=== PATIENT | female | born 1960 | race Caucasian/White ===

== ENCOUNTER → 2020-06-09 08:31 | Outpatient (CLI) | payer OTHER, SELFPAY ==
--- NOTE | ~2020-06-09 | CT_ITS ---
EXAMINATION: CT diagnostic chest w con DATE: 06/09/2020 09:09 INDICATION: Vocal cord paralysis TECHNIQUE: Transaxial computed tomographic images of the chest were obtained after the administration of 75 cc of Omnipaque 350 intravenous contrast. The dose-length product (DLP) was 679.19 mGy-cm. Ite rative reconstruction was used. COMPARISON: 11/20/2018 FINDINGS: There is a 4 mm nodule of the right upper lobe on image 33. A calcified nodule of the left lower lobe is consistent with old granulomatous disease. A stable 4 mm nodule of the left lower lobe also likely represents old granulomatous disease. The lungs are free of acute opacities. There is no pleural effusion or pneumothorax. No pathologically enlarged thoracic lymph nodes are identified. The heart size is normal. Punctate calcifications in an otherwise normal spleen likely represent healed granulomatous disease. There is moderate thoracic spondylosis. IMPRESSION: 1. No CT correlate for the patient's symptoms. 2. 4 mm nodule of the right upper lobe, likely old granulomatous disease. If the patient has no risk factors for malignancy, no further follow up is required. If there are risk factors for malignancy ( i.e., history of smoking, asbestos or radiation exposure), consider followup CT in 12 months. Reviewed, dictated and finalized at location A. IMPRESSION: 1. No CT correlate for the patient's symptoms. 2. 4 mm nodule of the right upper lobe, likely old granulomatous disease. If th e patient has no risk factors for malignancy, no further follow up is required. If there are risk factors for malignancy (i.e., history of smoking, asbestos or radiation exposure), consider followup CT in 12 months.
[2020-06-09 08:49] LABS: Estimated Glomerular Filt Rate > 60
== END ==
PROVIDERS: Visit Provider Otolaryngology
DX: J38.00 Paralysis of vocal cords and larynx, unspecified (principal); R91.1 Solitary pulmonary nodule
CPT/HCPCS: 71260; Q9967

== ENCOUNTER 2021-11-05 16:31 | Emergency (ER) | payer OTHER, SELFPAY ==
[2021-11-05 16:40] VITALS: BP 148/81; PULSE 98; RESP 18; TEMP 37.1; O2SAT 100
--- NOTE | 2021-11-05 17:33 | ED.FEMALEGU ---
HPI - Female Genitourinary General Chief complaint: Urogenital-Female Stated complaint: possible uti Time Seen by Provider: 11/05/21 17:33 Source: patient, RN notes reviewed and old records reviewed Mode of arrival: ambulatory Limitations: no limitations History of Present Illness HPI Narrative: 61-year-old female presents to the [facility] with several days of burning, urgency and frequency of urination. Patient states it feels like a typical UTI with pressure suprapubic. Denies any fevers. No nausea or vomiting. No abdominal pain. No CVA tenderness. Related Data Home Medications Medication Instructions Recorded Confirmed amlodipine 10 mg tablet 10 mg DIRECTED 11/05/21 11/05/21 estradiol 10 mcg vaginal tablet 10 mcg vaginal DIRECTED 11/05/21 11/05/21 metformin 500 mg tablet,extended 500 mg PO DIRECTED 11/05/21 11/05/21 release 24 hr nystatin 100,000 unit/gram topical 100,000 unit topical DIRECTED 11/05/21 11/05/21 ointment Allergies Allergy/AdvReac Type Severity Reaction Status Date / Time No Known Allergies Allergy Unknown Verified 11/20/18 01:02 No Known Allergies Allergy Uncoded 11/20/18 01:02 Review of Systems Review of Systems: All systems reviewed & are unremarkable except as noted in HPI and below Constitutional: Constitutional: Reports no additional constitutional complaints, Denies chills and Denies fatigue Eyes: Eyes: Reports no additional eye complaints ENT: Reports system reviewed and no additional complaints, except as documented Cardiovascular: Cardiovascular: Reports no additional cardiovascular complaints Respiratory: Respiratory: Reports no additional respiratory complaints Gastrointestinal: Gastrointestinal: Reports no additional gastrointestinal complaints, Denies abdominal pain, Denies diarrhea, Denies nausea and Denies vomiting Genitourinary: Genitourinary: Reports as per HPI, Reports hematuria, Reports nocturia, Reports dysuria, Denies flank pain and Denies vaginal discharge Musculoskeletal: Musculoskeletal: Reports no additional musculoskeletal complaints and Denies back pain Integumentary/Breasts: Skin/Breast: Reports system reviewed and no additional complaints, except as docu Neurologic: Reports system reviewed and no additional complaints, except as documented Psychiatric: Psychiatric: Reports no additional psychiatric complaints Endocrine: Endocrine: Denies fatigue Allergic/Immunologic: Allergic/Immunologic: Reports no additional allergic/immunologic complaints PMFSH Past Medical History Medical History (Updated 09/30/22 @ 17:37 by Asiya Portillo APRN) Diabetes Diverticulitis Hernia HTN (hypertension) IBS (irritable bowel syndrome) Surgical History Surgical History History of section History of cholecystectomy History of hernia repair History of hysterectomy Social History Social History Smoking status: Never smoker Alcohol intake: current Alcohol use details: Occasional Comments At the time of my signature, I reviewed and agree with the nursing past medical, surgical, social, and family history. There is no relevant family history pertinent to the patient complaint. Exam Const: General: healthy appearing, no acute distress and alert Nutritional Appearance: well nourished Orientation/consciousness: patient oriented x3 Limitations: no limitations HENMT: Head: normal to inspection Eyes: Conjunctivae: conjunctivae normal Pupils: Equal, round and reactive pupils present Neck: Neck: normal visual inspection, no lymphadenopathy and no meningeal signs Chest: Chest palpation & inspection: normal inspection of the chest and abnormal inspection of the chest Resp: Effort & Inspection: normal respiratory effort Auscultation: clear to auscultation bilaterally Cardio: Rate: regular rate Rhythm: regular rhythm GI
== END 2021-11-05 17:47 | disposition home or self-care (01) ==
PROVIDERS: Emergency Provider Nurse Practitioner; PCP Family Medicine
DX: R30.0 Dysuria (principal); I10 Essential (primary) hypertension
CPT/HCPCS: 81003; 87086; 87088; 99213; G0463

== ENCOUNTER 2021-12-08 16:32 | Emergency (ER) | payer OTHER, SELFPAY ==
[2021-12-08] VITALS (8 sets, daily range): BP systolic 175–188; BP diastolic 77–96; PULSE 80–102; RESP 16–20; TEMP 36.1; O2SAT 96–100
--- NOTE | ~2021-12-08 | CT_ITS ---
EXAMINATION: CT abdomen pelvis w con DATE: 12/08/2021 19:42 INDICATION: LLQ pain TECHNIQUE: Computed tomography (CT) of the abdomen and pelvis was performed with 100 mL Omnipaque-350 intravenous contrast. Automated exposure control and iterative reconstruction technique were employe d. The dose-length product was 1459.73 mGy-cm. COMPARISON: 12/16/2018. FINDINGS: Lower thorax: Mild coronary artery calcification. Left lower lobe granuloma. Liver: Normal. Biliary/Gallbladder: Gallbladder is absent. No bile duct dilation. Pancreas: No mass or duct dilation. Spleen: Granulomatous calcification Adrenals:No mass. Kidneys: Left renal ectopia. No suspicious mass, hydronephrosis, or obstructing calcification GI tract: No small or large bowel dilation. Normal appendix. Diverticulosis without diverticulitis. Mesentery/Peritoneum: No ascites, mass, or free air. Retroperitoneum: No mass. Atherosclerotic abdominal aortic and/or arterial calcifications. Pelvis: Pelvic organs are within normal limits. Soft Tissues: Soft tissues and body wall unremarkable. Bones: No acute osseous finding. IMPRESSION: No acute abdominopelvic process detected Reviewed, dictated and finalized at location K.
[2021-12-08 16:58] LABS: Basophils Absolute Auto 0.1 K/mm3 (0.0-0.1); Basophils Percent Auto 0.9 % (0.2-1.2); Eosinophils Absolute Auto 0.3 K/mm3 (0-0.3); Eosinophils Percent Auto 4.2 % (0-4.4); Hematocrit 38.4 % (37.0-47.0); Hemoglobin 12.7 g/dL (12.0-15.0); Immature Granulocyte Absolute 0.02 K/mm3 (0.00-0.031); Immature Granulocyte Percent A 0.3 % (0-0.5); Lymphocytes Absolute Auto 1.98 K/mm3 (0.9-3.2); Lymphocytes Percent Auto 25.3 % (18.3-44.2); Mean Corpuscular HGB Conc 33.1 g/dl (32-36); Mean Corpuscular Volume 84.8 fl (80-100); Monocytes Absolute Auto 0.6 K/mm3 (0.1-0.6); Monocytes Percent Auto 7.3 % (2.6-8.5); Neutrophils Absolute Auto 4.9 K/mm3 (1.3-6.7); Platelet Count Result 246 k/mm3 (150-375); Red Blood Count 4.53 M/mm3 (4.2-5.4); Red Cell Distribution Width 13.2 % (11.5-14.5); White Blood Count 7.8 K/mm3 (4.5-10.0)
[2021-12-08 17:09] LABS: Alanine Aminotransferase 30 U/L (6-35); Albumin Level 4.3 g/dL (3.5-5.1); Alkaline Phosphatase 114 U/L (38-126); Anion Gap 10 mmol/L (8-16); Aspartate Amino Transferase 32 U/L (14-36); Bilirubin,Total 0.6 mg/dL (0.2-1.3); Blood Urea Nitrogen 13 mg/dL (7-17); Calcium 9.1 mg/dL (8.4-10.2); Carbon Dioxide 28 mmol/L (22-30); Chloride 100 mmol/L (98-107); Estimated CRCL calculation 103 ml/min; Estimated Glomerular Filt Rate > 60; Glucose 149 mg/dL (65-110); Lipase 69 U/L (23-300); Sodium 138 mmol/L (137-145)
--- NOTE | 2021-12-08 19:22 | ED.ABDPAIN ---
HPI - Abdominal Pain General Chief Complaint: Abdominal Pain Stated Complaint: LLQ pain Time Seen by Provider: 12/08/21 18:53 History of Present Illness HPI narrative: 61-year-old female with history of diverticulitis, previous section, hernia repair and hysterectomy presenting to the emergency department for evaluation of left lower quadrant pain this been going on for the past 2 days. Patient states she began having the left lower quadrant pain yesterday. Patient states the pain is worsened with eating. Patient does report associated nausea vomiting and diarrhea. Patient's last episode of diverticulitis was October 2018. Patient had had follow-up with a GI physician at [facility] and they were discussing possible surgery but after COVID patient has been lost to follow-up with GI. Patient had a hernia repair in 2003. Related Data Home Medications Medication Instructions Recorded Confirmed amlodipine 10 mg tablet 10 mg DIRECTED 11/05/21 11/05/21 estradiol 10 mcg vaginal tablet 10 mcg vaginal DIRECTED 11/05/21 11/05/21 metformin 500 mg tablet,extended 500 mg PO DIRECTED 11/05/21 11/05/21 release 24 hr nystatin 100,000 unit/gram topical 100,000 unit topical DIRECTED 11/05/21 11/05/21 ointment Allergies Allergy/AdvReac Type Severity Reaction Status Date / Time No Known Allergies Allergy Unknown Verified 12/08/21 16:48 Review of Systems Review of Systems: CONSTITUTIONAL: Denies fever, chills, or sweats. EYES: Denies visual changes, redness, or discharge. ENT: Denies rhinorrhea, congestion, sore throat, or otalgia. CARDIOVASCULAR: Denies chest pain, palpitations, or edema. RESPIRATORY: Denies cough or dyspnea. GASTROINTESTINAL: Left lower quadrant pain GENITOURINARY: Denies dysuria or hematuria. SKIN: Denies rash or itching. MUSCULOSKELETAL: Denies back pain, joint pain, or myalgia. [facility] Past Medical History Medical History (Updated 12/08/21 @ 20:41 by Douglas Vargas MD) Diabetes Diverticulitis Hernia HTN (hypertension) IBS (irritable bowel syndrome) Surgical History Surgical History History of section History of cholecystectomy History of hernia repair History of hysterectomy Social History Social History (Reviewed 11/05/21 @ 20:10 by ERNESTINE Borges Smoking status: Never smoker Alcohol intake: current Alcohol use details: Occasional Exam Narrative: APPEARANCE: Well appearing, no pain, no distress, well-nourished. HEAD: normocephalic, atraumatic. EYES: PERRLA/EOMI, conjunctivae clear. NOSE: Normal no drainage NECK: Supple. No adenopathy, no masses. RESPIRATORY: Airway patent, respirations nonlabored. Clear to auscultation bilaterally, no rales, rhonchi, wheezing. CARDIOVASCULAR: Regular rate and rhythm without murmurs rubs or gallops. ABDOMINAL: Soft, nondistended, normal bowel sounds. Left lower quadrant tenderness to palpation with some minor right lower quadrant tenderness MUSCULOSKELETAL: Moves all extremities. Strength/ROM intact, No edema, No calf tenderness. NEURO: Alert. Cranial nerves II through XII intact. Grossly intact SKIN: Warm, dry. Normal Color Course Course Emergency Course: Patient suspected that her symptoms were caused by diverticulitis due to the similarity to her previous episodes of diverticulitis. CT scan showed no evidence of diverticulitis. Patient will be started on Augmentin for diverticulitis that may have been so early it was not visible on the CT scan. Patient was provided Zofran for nausea control and will start Augmentin. Patient was educated on reasons to return to the emergency department. All question concerns were addressed. Patient was well-appearing at time of discharge. Vital Signs Vital signs: Vital Signs Temperature 97 F L 12/08/21 16:45 Pulse Rate 100 12/08/21 16:45 Respiratory Rate 20 12/08/21 16:45 Blood Pressure 175/83 H
[2021-12-08 20:26] LABS: Appearance Urine Clear (Clear); Bilirubin Urine Negative (Negative); Blood Urine Negative (Negative); Color Urine Yellow (Yellow); Glucose Urine UA Negative (Negative); Ketones Urine Negative (Negative); Leukocyte Esterase Ur Negative LEU/UL (Negative); Nitrate Urine Negative (Negative); Protein Urine Negative (Negative); Specific Grav Ur 1.015 (1.001-1.035); Urobilinogen Urine 0.2 mg/dL (<2.0)
[2021-12-08 20:34] LABS: Mucus Urine Rare /lpf; WBC Urine 0-3 /hpf
[2021-12-08 20:35] LABS: Add Urine Microscopic? NO
[2021-12-08] MEDS: AMOXICILLIN/CLAVULANATE K 875-125 MG TAB 1 TABLET PO (20:49)
[2021-12-08] MEDS: ONDANSETRON INJ 4 MG/2 ML VIAL IV PUSH (20:49)
== END 2021-12-08 21:00 | disposition home or self-care (01) ==
PROVIDERS: Emergency Medicine; Emergency Provider Emergency Medicine; PCP Family Medicine
DX: R10.32 Left lower quadrant pain (principal); E11.9 Type 2 diabetes mellitus without complications; I10 Essential (primary) hypertension; K58.9 Irritable bowel syndrome, unspecified; Z90.710 Acquired absence of both cervix and uterus
CPT/HCPCS: 36415; 74177; 80053; 81003; 83690; 85025; 96374; 99284; A9270; J2405; Q9967

== ENCOUNTER 2022-05-27 07:36 | Emergency (ER) | payer BC, SELFPAY ==
[2022-05-27] VITALS (19 sets, daily range): BP systolic 136–182; BP diastolic 64–88; PULSE 81–99; RESP 11–19; TEMP 36.4; O2SAT 94–100
--- NOTE | ~2022-05-27 | XR_ITS ---
EXAMINATION: XR chest 2V 05/27/2022 08:18 INDICATION: Chest pain, nausea and hypertension PROCEDURE: PA and lateral views of the chest COMPARISON: 06/10/2018 FINDINGS: The lungs are clear. The cardiomediastinal silhouette is within normal limits. There are no pleural effusions. There is no pneumothorax suspected. IMPRESSION: 1: NO ACUTE CARDIOPULMONARY DISEASE. Reviewed, dictated and finalized at location A.
--- NOTE | 2022-05-27 07:41 | ECG_ITS ---
Measurements Intervals [place] Rate: 96 P: -11 ND: 123 QRS: -21 QRSD: 93 T: -12 QT: 346 QTc: 438 Interpretive Statements SINUS RHYTHM BORDERLINE LEFT AXIS DEVIATION [QRS AXIS < -20] MODERATE VOLTAGE CRITERIA FOR LVH, CONSIDER NORMAL VARIANT [MEETS CRITERIA IN ONE OF: R(aVL), S(V1), R(V5), R(V5/V6)+S(V1)] POOR R-WAVE PROGRESSION ABNORMAL ECG COMPARED TO ECG 11/19/2018 22:47:19 NO SIGNIFICANT CHANGES Electronically Signed On 05-27-2022 15:28:16 CDT by Lne Huber M.D.
[2022-05-27 08:21] LABS: Basophils Absolute Auto 0.1 K/mm3 (0.0-0.1); Basophils Percent Auto 0.9 % (0.2-1.2); Eosinophils Absolute Auto 0.4 K/mm3 (0-0.3); Hematocrit 38.3 % (37.0-47.0); Hemoglobin 12.9 g/dL (12.0-15.0); Immature Granulocyte Absolute 0.02 K/mm3 (0.00-0.031); Immature Granulocyte Percent A 0.3 % (0-0.5); Lymphocytes Absolute Auto 1.49 K/mm3 (0.9-3.2); Lymphocytes Percent Auto 21.3 % (18.3-44.2); Mean Corpuscular HGB Conc 33.7 g/dl (32-36); Mean Corpuscular Hemoglobin 28.5 pg (26-34); Mean Corpuscular Volume 84.5 fl (80-100); Mean Platelet Volume 10.4 fl (7.4-10.4); Monocytes Absolute Auto 0.4 K/mm3 (0.1-0.6); Monocytes Percent Auto 6.2 % (2.6-8.5); Neutrophils Absolute Auto 4.6 K/mm3 (1.3-6.7); Neutrophils Percent Auto 66.3 % (45.5-73.1); Platelet Count Result 228 k/mm3 (150-375); Red Blood Count 4.53 M/mm3 (4.2-5.4); Red Cell Distribution Width 13.2 % (11.5-14.5)
[2022-05-27 08:26] LABS: Alanine Aminotransferase 38 U/L (6-35); Albumin Level 4.4 g/dL (3.5-5.1); Alkaline Phosphatase 123 U/L (38-126); Anion Gap 7 mmol/L (8-16); Aspartate Amino Transferase 36 U/L (14-36); Bilirubin,Total 0.6 mg/dL (0.2-1.3); Blood Urea Nitrogen 14 mg/dL (7-17); Carbon Dioxide 29 mmol/L (22-30); Chloride 102 mmol/L (98-107); Estimated CRCL calculation 120 ml/min; Estimated Glomerular Filt Rate > 60; Glucose 217 mg/dL (65-110); Lipase 111 U/L (23-300); Potassium 4.4 mmol/L (3.4-5.0); Sodium 138 mmol/L (137-145)
[2022-05-27 08:38] LABS: Troponin I < 0.012 ng/mL (0.000-0.034)
--- NOTE | 2022-05-27 08:42 | ED.CHESTPAIN ---
HPI - Chest Pain General Chief Complaint: Chest Pain Stated Complaint: chest pain Time Seen by Provider: 05/27/22 07:53 History of Present Illness HPI narrative: Patient with history of high blood pressure presenting here with chest pain that started this morning, with some radiation to the neck, she also feels her blood pressure has been out of control for the last 2 to 3 days, she is currently on amlodipine and recently started a new medication amitriptyline for her bladder. Related Data Home Medications Medication Instructions Recorded Confirmed amlodipine 10 mg tablet 10 mg DIRECTED 11/05/21 11/05/21 estradiol 10 mcg vaginal tablet 10 mcg vaginal DIRECTED 11/05/21 11/05/21 metformin 500 mg tablet,extended 500 mg PO DIRECTED 11/05/21 11/05/21 release 24 hr nystatin 100,000 unit/gram topical 100,000 unit topical DIRECTED 11/05/21 11/05/21 ointment Allergies Allergy/AdvReac Type Severity Reaction Status Date / Time No Known Allergies Allergy Unknown Verified 12/08/21 16:48 Review of Systems Review of Systems: CONST: No fever. HEENT: No sore throat C/V: Chest pain RESP: No cough GI: Mild nausea : Chronic dysuria M/S: No joint pain. SKIN: No rash. NEURO: [No headache or focal numbness or weakness] PSYCH: [No depression] [facility] Past Medical History Medical History (Updated 05/27/22 @ 11:56 by Myla Foreman MD) Diabetes Diverticulitis Hernia HTN (hypertension) IBS (irritable bowel syndrome) Surgical History Surgical History History of section History of cholecystectomy History of hernia repair History of hysterectomy Social History Social History Smoking status: Never smoker Alcohol intake: current Alcohol use details: Occasional Exam Narrative: EXAMINATION OF ORGAN SYSTEMS/BODY AREAS: Constitutional: Vital signs per nursing GENERAL:[No acute distress, non-toxic appearing.] HEAD: Normal with no signs of head trauma. EYES: EOMI, conjunctiva normal ENT: Hearing grossly intact LUNGS: Nonlabored breathing. HEART: [Regular rate and rhythm]; normal and equal bilateral radial and DP pulses ABD: [Soft], [nontender to palpation] EXT: Normal range of motion SKIN: [No rashes or lesions.] NEURO: [Alert and oriented x 3. No gross focal sensory or strength deficits.] PSYCH: Normal affect Course Vital Signs Vital signs: Vital Signs Temperature 97.6 F 05/27/22 07:48 Pulse Rate 96 05/27/22 07:48 Respiratory Rate 18 05/27/22 07:48 Blood Pressure 136/66 05/27/22 07:48 Pulse Oximetry 100 05/27/22 07:48 Oxygen Delivery Room Air 05/27/22 07:48 Temperature 97.6 F 05/27/22 07:48 Pulse Rate 88 05/27/22 11:45 Respiratory Rate 16 05/27/22 11:45 Blood Pressure 154/64 H 05/27/22 11:45 Pulse Oximetry 95 05/27/22 11:45 Oxygen Delivery Room Air 05/27/22 07:48 MDM - Chest Pain MDM Narrative Medical decision making narrative: ED COURSE AND MEDICAL DECISION MAKINyoM presenting with chest pain. EKG done in triage negative for acute ischemic changes. Cardiac workup is initiated. EKG - 12-Lead: Performed at 0745. Interpreted by me. [Sinus rhythm]. Rate 96. [Normal] axis. LA-interval 123. QRS duration 93. QTc [normal]. [No ST segment elevation or depression]. [T-wave normal]. Impression: No EKG evidence of acute ischemia or dysrhythmia. HEART score is 3 with no acute ischemic changes on EKG and negative troponin making ACS unlikely. Wells low risk making PE unlikely. Presentation not consistent with dissection or aneurysm without radiation of pain or pulse deficits. CXR negative for mediastinal widening. No abdominal pain or signs of sepsis that would be concerning for esophageal perforation or mediastinitis. No cardiomegaly or JVD to suggest pericardial effusion/tamponade. On repeat evaluation just prior to discharge, the patient
[2022-05-27 08:47] LABS: Prothrombin Time 12.9 Seconds (11.1-14.7)
[2022-05-27 08:48] LABS: Partial Thromboplastin Time 27.7 SECONDS (22.3-36.8)
[2022-05-27 11:31] LABS: Troponin I < 0.012 ng/mL (0.000-0.034)
== END 2022-05-27 12:07 | disposition home or self-care (01) ==
PROVIDERS: Emergency Provider Emergency Medicine; PCP Family Medicine
DX: R07.9 Chest pain, unspecified (principal); I10 Essential (primary) hypertension; E11.9 Type 2 diabetes mellitus without complications
CPT/HCPCS: 36415; 71046; 80053; 83690; 84484; 85025; 85610; 85730; 93005; 99284

== ENCOUNTER 2023-01-21 11:12 | Emergency (ER) | payer BC, SELFPAY ==
[2023-01-21 11:25] VITALS: BP 141/75; PULSE 91; RESP 16; TEMP 36.7; O2SAT 98
--- NOTE | 2023-01-21 12:09 | ED.URI ---
HPI - URI/Sore Throat General Chief Complaint: Upper Respiratory Infection Stated Complaint: head/chest congestion, cough Time Seen by Provider: 01/21/23 12:12 Source: patient and RN notes reviewed Mode of arrival: ambulatory Limitations: no limitations History of Present Illness HPI Narrative: 62-year-old female presents concern for cough, nasal congestion and drainage. She reports symptoms started several weeks ago, she took a Z-Raza from her doctor and felt mostly better until about 3 days ago when she started feeling worse again. She reports she has been using an albuterol inhaler, she last took it last night. MD elicited complaint: cough and rhinorrhea Related Data Home Medications Medication Instructions Recorded Confirmed amlodipine 10 mg tablet 10 mg DIRECTED 11/05/21 01/21/23 estradiol 10 mcg vaginal tablet 10 mcg vaginal DIRECTED 11/05/21 01/21/23 albuterol sulfate 90 mcg/actuation See Rx Instructions .Route .COMPLEX 01/21/23 01/21/23 aerosol inhaler azithromycin 250 mg tablet See Rx Instructions .Route .COMPLEX 01/21/23 01/21/23 clobetasol 0.05 % scalp solution See Rx Instructions .Route .COMPLEX 01/21/23 01/21/23 glyburide 5 mg tablet 5 mg PO DAILY 01/21/23 01/21/23 pantoprazole 40 mg tablet,delayed 40 mg PO DAILY 01/21/23 01/21/23 release terbinafine HCl 250 mg tablet 250 mg PO DAILY 01/21/23 01/21/23 Allergies Allergy/AdvReac Type Severity Reaction Status Date / Time No Known Allergies Allergy Unknown Verified 01/21/23 11:43 Review of Systems Review of Systems: CONSTITUTIONAL: Reports malaise. Denies chills, sweats, or fever. EYES: Denies visual changes, redness, or discharge. ENT: Reports rhinorrhea, congestion, sinus pain. Denies otalgia and sore throat. CARDIOVASCULAR: Denies chest pain, palpitations, or edema. RESPIRATORY: Reports cough and chest congestion. Denies dyspnea. GASTROINTESTINAL: Denies abdominal pain, nausea, vomiting, diarrhea SKIN: Denies rash or itching. MUSCULOSKELETAL: Denies myalgia. NEUROLOGIC: Reports headache. All systems reviewed & are unremarkable except as noted in HPI and below PMFSH Past Medical History Medical History (Updated 01/21/23 @ 12:20 by Asiya Mustafa NP) Diabetes Diverticulitis Hernia HTN (hypertension) IBS (irritable bowel syndrome) Surgical History Surgical History History of section History of cholecystectomy History of hernia repair History of hysterectomy Social History Social History Smoking status: Never smoker Alcohol intake: current Alcohol use details: Occasional Comments At time of signature, agree with nursing past medical, surgical, social and family history. There is no relevant family history pertinent to the presenting complaint Exam Narrative: GENERAL: Well-appearing, well-nourished, and in no acute distress. HEAD: Normocephalic EYES: PERRLA, conjunctivae clear ENT: Nares clear, turbinates edematous and erythematous. Mucous membranes moist. TM pearly cam with sharp light reflex bilaterally; no tragal tenderness. Oropharynx not erythematous without lesions. Tonsils not enlarged and without exudate, no drooling, no hoarseness, no trismus, uvula midline. NECK: Supple. No lymphadenopathy CHEST: Clear to auscultation, breath sounds equal. No wheezing, rhonchi, rales, or stridor. No respiratory distress, speaks in full sentences. Cough noted HEART: Regular rate and rhythm. No murmur heard. SKIN: Warm, dry, no rash. NEURO: Alert and oriented x3. PSYCH: Normal mood and affect Course Course Emergency Course: Patient is aware of diagnosis, understands and agrees to treatment plan. Anticipatory guidance given. Patient agrees to follow-up as directed and is aware of reasons to seek care at the emergency department. Portions of this record may have been created with voice recognition software Lev
== END 2023-01-21 12:29 | disposition home or self-care (01) ==
PROVIDERS: Emergency Provider Nurse Practitioner; PCP Family Medicine
DX: J40 Bronchitis, not specified as acute or chronic (principal); E11.9 Type 2 diabetes mellitus without complications; I10 Essential (primary) hypertension
CPT/HCPCS: 99213; G0463

== ENCOUNTER 2023-07-29 06:31 | Emergency (ER) | payer BC, SELFPAY ==
--- NOTE | ~2023-07-29 | CT_ITS ---
EXAMINATION: CT abdomen pelvis wo con DATE: 07/29/2023 08:26 INDICATION: Dysuria, frequent urination, hematuria. Lower back pain. Nausea. TECHNIQUE: Computed tomography (CT) of the abdomen and pelvis was performed without intravenous contr ast. Automated exposure control and iterative reconstruction technique were employed. Exam dose: 136 1.28 mGy-cm total exam DLP. COMPARISON: 12/08/2021 CT abdomen pelvis FINDINGS: Calcified left lower lobe pulmonary granuloma. No pericardial or pleural effusion. Status post cholecystectomy. No hepatic space-occupying mass lesion. No bile duct or pancreatic duct dilatation. The pancreatic mass lesion or calcification. Splenic size is normal. There are numerous calcified splenic granulomas. Normal morphology of the adrenal glands. No renal mass lesion The urinary bladder is unremarkable. Status post hysterectomy. Normal caliber of the abdominal aorta. No intraperitoneal or retroperitoneal or pelvic mass lesion or adenopathy or ascites. Diverticulosis of left and right colon; no CT evidence of diverticulitis. No bowel obstruction or int raperitoneal free air. No suspicious osteolytic or osteoblastic lesions. Degenerative changes of the thoracic and lumbar spi ne. IMPRESSION: No urinary tract calculus or hydroureteronephrosis Status post hysterectomy Status post cholecystectomy Diverticulosis of the colon; no CT evidence of diverticulitis Reviewed, dictated and finalized at [facility] Reviewed, dictated and finalized at [facility].
[2023-07-29 06:38] VITALS: BP 160/90; PULSE 89; RESP 14; TEMP 36.6; O2SAT 99
[2023-07-29 07:02] LABS: Basophils Absolute Auto 0.1 K/mm3 (0.0-0.1); Basophils Percent Auto 0.8 % (0.2-1.2); Eosinophils Absolute Auto 0.4 K/mm3 (0-0.3); Hematocrit 38.6 % (37.0-47.0); Hemoglobin 12.4 g/dL (12.0-15.0); Immature Granulocyte Absolute 0.03 K/mm3 (0.00-0.031); Immature Granulocyte Percent A 0.4 % (0-0.5); Lymphocytes Percent Auto 24.5 % (18.3-44.2); Mean Corpuscular HGB Conc 32.1 g/dl (32-36); Mean Corpuscular Hemoglobin 26.9 pg (26-34); Mean Corpuscular Volume 83.7 fl (80-100); Mean Platelet Volume 10.9 fl (7.4-10.4); Monocytes Absolute Auto 0.5 K/mm3 (0.1-0.6); Monocytes Percent Auto 6.5 % (2.6-8.5); Neutrophils Absolute Auto 4.6 K/mm3 (1.3-6.7); Neutrophils Percent Auto 62.8 % (45.5-73.1); Platelet Count Result 237 k/mm3 (150-375); Red Blood Count 4.61 M/mm3 (4.2-5.4); Red Cell Distribution Width 13.4 % (11.5-14.5); White Blood Count 7.4 K/mm3 (4.5-10.0)
[2023-07-29 07:11] LABS: Alanine Aminotransferase 27 U/L (6-35); Albumin Level 4.6 g/dL (3.5-5.1); Alkaline Phosphatase 110 U/L (38-126); Anion Gap 8 mmol/L (4-12); Aspartate Amino Transferase 30 U/L (14-36); Bilirubin,Total 0.5 mg/dL (0.2-1.3); Blood Urea Nitrogen 17 mg/dL (7-17); Carbon Dioxide 25 mmol/L (22-30); Chloride 104 mmol/L (98-107); Estimated CRCL calculation 115 ml/min; Estimated Glomerular Filt Rate > 60; Glucose 202 mg/dL (65-110); Potassium 4.3 mmol/L (3.4-5.0); Sodium 137 mmol/L (137-145)
--- NOTE | 2023-07-29 07:24 | ED.GENADULT ---
HPI - General Adult General Chief complaint: Urogenital-Female Stated complaint: Left flank pain, urinary issues Time Seen by Provider: 07/29/23 06:56 History of Present Illness HPI narrative: 63-year-old female presenting to the emergency department for evaluation for urinary symptoms. Patient states the last few days she has had worsening urinary symptoms. Patient describes lower abdominal pressure, burning with urination and increased urination. Patient is type 2 diabetic but states her blood sugars have been well controlled. Related Data Home Medications Medication Instructions Recorded Confirmed amlodipine 10 mg tablet 10 mg DIRECTED 11/05/21 01/21/23 estradiol 10 mcg vaginal tablet 10 mcg vaginal DIRECTED 11/05/21 01/21/23 albuterol sulfate 90 mcg/actuation See Rx Instructions .Route .COMPLEX 01/21/23 01/21/23 aerosol inhaler azithromycin 250 mg tablet See Rx Instructions .Route .COMPLEX 01/21/23 01/21/23 clobetasol 0.05 % scalp solution See Rx Instructions .Route .COMPLEX 01/21/23 01/21/23 glyburide 5 mg tablet 5 mg PO DAILY 01/21/23 01/21/23 pantoprazole 40 mg tablet,delayed 40 mg PO DAILY 01/21/23 01/21/23 release terbinafine HCl 250 mg tablet 250 mg PO DAILY 01/21/23 01/21/23 Allergies Allergy/AdvReac Type Severity Reaction Status Date / Time No Known Allergies Allergy Unknown Verified 01/21/23 11:43 Review of Systems Review of Systems: All systems reviewed & are unremarkable except as noted in HPI and below PMFSH Past Medical History Medical History (Updated 07/29/23 @ 09:20 by Douglas Vargas MD) Diabetes Diverticulitis Hernia HTN (hypertension) IBS (irritable bowel syndrome) Surgical History Surgical History History of section History of cholecystectomy History of hernia repair History of hysterectomy Social History Social History Smoking status: Never smoker Alcohol intake: current Alcohol use details: Occasional Exam Narrative: APPEARANCE: Well appearing, no pain, no distress, well-nourished. HEAD: normocephalic, atraumatic. EYES: PERRLA/EOMI, conjunctivae clear. NOSE: Normal no drainage EARS:TMS clear with good light reflex. THROAT: Pharynx clear, no exudate. NECK: Supple. No adenopathy, no masses. RESPIRATORY: Airway patent, respirations nonlabored. Clear to auscultation bilaterally, no rales, rhonchi, wheezing. CARDIOVASCULAR: Regular rate and rhythm without murmurs rubs or gallops. ABDOMINAL: Soft, nontender, nondistended, normal bowel sounds MUSCULOSKELETAL: Moves all extremities. Strength/ROM intact, No edema, No calf tenderness. NEURO: Alert. Cranial nerves II through XII intact. Good gait. Good coordination SKIN: Warm, dry. Normal Color Course Vital Signs Vital signs: Vital Signs Temperature 97.8 F 07/29/23 06:38 Pulse Rate 89 07/29/23 06:38 Respiratory Rate 14 07/29/23 06:38 Blood Pressure 160/90 H 07/29/23 06:38 Pulse Oximetry 99 07/29/23 06:38 Oxygen Delivery Room Air 07/29/23 06:38 Temperature 97.8 F 07/29/23 06:38 Pulse Rate 82 07/29/23 09:37 Respiratory Rate 17 07/29/23 09:37 Blood Pressure 140/56 L 07/29/23 09:37 Pulse Oximetry 98 07/29/23 09:37 Oxygen Delivery Room Air 07/29/23 06:38 Medical Decision Making [facility] Narrative Medical decision making narrative: 63-year-old female presenting to the emergency department for right flank pain that started this morning. Patient reports that right flank pain has since improved. Patient's only complaint now is chronic back pain. Patient is afebrile with no leukocytosis and a stable hemoglobin. No acute abnormalities on her CMP UA does show some ketones and red blood cells and does have oxalate crystals. Patient reports that her pain has significantly improved. No acute abnormalities on the patient's CT scan. Etiology includes musculosk
[2023-07-29] MEDS: SODIUM CHLORIDE 0.9% IV 1,000 ML 999 ML IV CONT (07:32)
[2023-07-29 07:36] VITALS: BP 148/77; PULSE 80
[2023-07-29 07:39] LABS: Appearance Urine Turbid (Clear); Bacteria Urine None Seen /hpf; Bilirubin Urine Negative (Negative); Blood Urine Negative (Negative); Color Urine Yellow (Yellow); Glucose Urine UA Negative (Negative); Ketones Urine Trace mg/dL (Negative); Leukocyte Esterase Ur Negative LEU/UL (Negative); Nitrate Urine Negative (Negative); Non Pathogenic Casts 0-2; Protein Urine Negative (Negative); Specific Grav Ur 1.013 (1.001-1.035); Squamous Epithelial Cell Urine Occasional /hpf (Few); Urobilinogen Urine 0.2 mg/dL (<2.0); WBC Urine 0-5 /hpf (0-3)
[2023-07-29 07:41] LABS: Calcium Oxalate Crystals Urine Present /hpf
[2023-07-29 07:44] VITALS: BP 145/61; BP 159/78; BP 167/78; PULSE 90; PULSE 91; PULSE 95; RESP 17; O2SAT 96
[2023-07-29 07:59] LABS: Add Urine Microscopic? YES
[2023-07-29 09:37] VITALS: BP 140/56; PULSE 82; RESP 17; O2SAT 98
== END 2023-07-29 09:40 | disposition home or self-care (01) ==
PROVIDERS: Emergency Medicine; Emergency Provider Emergency Medicine; PCP Family Medicine
DX: R31.9 Hematuria, unspecified (principal); R10.9 Unspecified abdominal pain; E11.9 Type 2 diabetes mellitus without complications; I10 Essential (primary) hypertension; K58.9 Irritable bowel syndrome, unspecified; Z90.49 Acquired absence of other specified parts of digestive tract; Z90.710 Acquired absence of both cervix and uterus; Z79.84 Long term (current) use of oral hypoglycemic drugs; Z79.52 Long term (current) use of systemic steroids; Z79.899 Other long term (current) drug therapy; K57.90 Diverticulosis of intestine, part unspecified, without perforation or abscess without bleeding
CPT/HCPCS: 36415; 74176; 80053; 81001; 85025; 96360; 99284; J7030

== ENCOUNTER 2023-10-22 08:06 | Emergency (ER) | payer BC, SELFPAY ==
[2023-10-22 08:09] VITALS: BP 154/99; PULSE 85; RESP 20; TEMP 36.3; O2SAT 98
--- NOTE | 2023-10-22 08:20 | ED.SKABFB ---
HPI - Skin/Abscess/Foreign Bdy General Chief complaint: Skin/Abscess/Foreign Body Stated complaint: Rash Time Seen by Provider: 10/22/23 08:21 Source: patient, RN notes reviewed and old records reviewed Mode of arrival: ambulatory Limitations: no limitations History of Present Illness HPI narrative: Patient presents with complaints of scattered rash that has been present for 12 days. She has been using hydrocortisone cream with poor results. She reports that she believes the rash is due to poison lindsey. She has some in her yd, saw her cat rolling around in it, then her cat rubbed up on her. After that, the rash developed. She says she is not sleeping well due to itching. Related Data Home Medications Medication Instructions Recorded Confirmed amlodipine 10 mg tablet 10 mg DIRECTED 11/05/21 01/21/23 estradiol 10 mcg vaginal tablet 10 mcg vaginal DIRECTED 11/05/21 01/21/23 glyburide 5 mg tablet 5 mg PO DAILY 01/21/23 01/21/23 terbinafine HCl 250 mg tablet 250 mg PO DAILY 01/21/23 01/21/23 amitriptyline 10 mg tablet mg 10/22/23 blood-glucose sensor (Dexcom G6 10/22/23 10/22/23 Sensor device) blood-glucose transmitter (Dexcom 10/22/23 10/22/23 G6 Transmitter device) metformin 500 mg tablet,extended mg PO 10/22/23 release 24 hr pantoprazole 40 mg tablet,delayed mg PO 10/22/23 release tirzepatide 2.5 mg/0.5 mL mg subcut 10/22/23 subcutaneous pen injector (Fabrizio) Allergies Allergy/AdvReac Type Severity Reaction Status Date / Time No Known Allergies Allergy Unknown Verified 10/22/23 08:08 Review of Systems Review of Systems: All systems reviewed & are unremarkable except as noted in HPI and below Constitutional: Constitutional: Reports no additional constitutional complaints ENT: Reports system reviewed and no additional complaints, except as documented Cardiovascular: Cardiovascular: Reports as per HPI and Reports no additional cardiovascular complaints Respiratory: Respiratory: Reports as per HPI and Reports no additional respiratory complaints Gastrointestinal: Gastrointestinal: Reports no additional gastrointestinal complaints Integumentary/Breasts: Skin/Breast: Reports system reviewed and no additional complaints, except as docu, Reports as per HPI, Reports pruritus and Reports rash PMFSH Past Medical History Medical History (Updated 10/22/23 @ 08:33 by Natalie Herring APRN) Diabetes Diverticulitis Hernia HTN (hypertension) IBS (irritable bowel syndrome) Surgical History Surgical History History of section History of cholecystectomy History of hernia repair History of hysterectomy Social History Social History Smoking status: Never smoker Alcohol intake: current Alcohol use details: Occasional Comments At the time of my signature, I reviewed and agree with the nursing past medical, surgical, social, and family history. There is no relevant family history pertinent to the patient complaint. Exam Const: General: cooperative, no acute distress, alert and awake Orientation/consciousness: oriented to person, oriented to place and oriented to time HENMT: Head: normal to inspection Resp: Effort & Inspection: normal respiratory effort and able to speak in complete sentences Auscultation: clear to auscultation bilaterally, no crackles, no rales, no rhonchi and no wheezes Cardio: Palpation: normal PMI Rate: regular rate Rhythm: regular rhythm Heart sounds: S1 normal heart sound present and S2 normal heart sound present Skin: Rashes: rashes noted (Neck, chest, limbs, consistent with poison lindsey) Neuro: General: oriented to person, oriented to place and oriented to time Cranial nerves: Yes CN's II-XII intact bilaterally Psych: Appearance: grossly normal Thought process: Normal thought process present Insight: Good insight present (Psych)
== END 2023-10-22 08:40 | disposition home or self-care (01) ==
PROVIDERS: Emergency Provider Nurse Practitioner Family; PCP Family Medicine
DX: L23.7 Allergic contact dermatitis due to plants, except food (principal); I10 Essential (primary) hypertension; E11.9 Type 2 diabetes mellitus without complications
CPT/HCPCS: 99213; G0463

== ENCOUNTER 2024-02-18 05:57 | Emergency (ER) | payer OTHER, BC, SELFPAY ==
--- NOTE | ~2024-02-18 | CT_ITS ---
EXAMINATION: CT abdomen pelvis w con DATE: 02/18/2024 12:56 INDICATION: Left lower quadrant abdominal pain which progressed to generalized abdominal pain. Histor y of diverticulitis. TECHNIQUE: Computed tomography (CT) of the abdomen and pelvis was performed with 100 CC Omnipaque 350 intravenous contrast. Automated exposure control and iterative reconstruction technique were employe d. Exam dose: 1378.81 mGy-cm total exam DLP. COMPARISON: 07/29/2023 CT abdomen pelvis FINDINGS: The lung bases are clear. Normal heart size. No pericardial or pleural effusion. Very small sliding hiatal hernia. Status post cholecystectomy. The liver is unremarkable. Multiple calcified splenic granulomas. No pancreatic mass lesion or calcification or pancreatic duct dilatation. No bile duct dilatation. Normal morphology of the adrenal glands. No renal mass lesion, urinary tract calculus or hydroureteronephrosis. Urinary bladder is relatively evacuated. Status post hysterectomy. Diverticulosis of the sigmoid and descending colon and splenic flexure, in addition to transverse col on, hepatic flexure. No evidence of diverticulitis. No evidence of appendicitis. No bowel obstruction, bowel wall thickening, pneumatosis or intraperitoneal free air is detected. Normal caliber of the abdominal aorta. No intraperitoneal or retroperitoneal or pelvic mass lesion or adenopathy or ascites. Diffuse idiopathic skeletal hyperostosis of the thoracic spine. Multilevel moderate to moderately sev ere degenerative disc disease of the lumbar spine and prominent degenerative change of the lumbar apo physeal joints. No suspicious osteolytic or osteoblastic lesions. IMPRESSION: Diverticulosis of left and right colon; no evidence of diverticulitis No evidence of appendicitis Status post cholecystectomy Status post hysterectomy Reviewed, dictated and finalized at [facility] Reviewed, dictated and finalized at [facility]. R D MANAGER IMPRESSION: Diverticulosis of left and right colon; no evidence of diverticuli tis No evidence of appendicitis Status post cholecystectomy Status post hysterectomy
[2024-02-18 06:01] VITALS: BP 171/72; PULSE 90; RESP 20; TEMP 36.4; O2SAT 99
[2024-02-18 08:48] VITALS: BP 170/83; PULSE 81; RESP 18; TEMP 36.8; O2SAT 98
--- NOTE | 2024-02-18 10:47 | ED_ITS ---
HPI - Abdominal Pain General Chief Complaint: Abdominal Pain Stated Complaint: ABD pain, n/v/d Time Seen by Provider: 02/18/24 10:44 Source: patient and family Mode of arrival: ambulatory Limitations: no limitations History of Present Illness HPI narrative: Patient presents with abdominal pain starting 4 days ago. It initially started on the left side but has no become more diffuse and described as occurring all over. She also states that the pain is worsening. This is associated with nausea but no vomiting. He has also had 3 loose last diarrheal stools. No obvious blood although she does states or orange in color. No fevers but she had chills this morning and this is when she also started to feel weak. Her symptoms are worse when she. She continues to have an appetite but given that it is painful she eats she has had decreased p.o. intake. Her last oral intake was yesterday. She has a history of diverticulitis x3 prior flares. She sees a GI doctor in [place]. Her last colonoscopy was performed in February although this was not a post-diverticulitis colonoscopy but rather a routine one. Related Data Home Medications ?Medication ?Instructions ?Recorded ?Confirmed ?Last Taken ?Type amlodipine 10 mg tablet 10 mg DIRECTED 11/05/21 01/21/23 Unknown History estradiol 10 mcg vaginal tablet 10 mcg vaginal DIRECTED 11/05/21 01/21/23 Unknown History glyburide 5 mg tablet 5 mg PO DAILY 01/21/23 01/21/23 Unknown History terbinafine HCl 250 mg tablet 250 mg PO DAILY 01/21/23 01/21/23 Unknown History amitriptyline 10 mg tablet mg 10/22/23 Unknown History blood-glucose sensor (Dexcom G6 10/22/23 10/22/23 Unknown History Sensor device) blood-glucose transmitter (Dexcom 10/22/23 10/22/23 Unknown History G6 Transmitter device) metformin 500 mg tablet,extended mg PO 10/22/23 Unknown History release 24 hr pantoprazole 40 mg tablet,delayed mg PO 10/22/23 Unknown History release tirzepatide 2.5 mg/0.5 mL mg subcut 10/22/23 Unknown History subcutaneous pen injector (Mounjaro) Allergies Allergy/AdvReac Type Severity Reaction Status Date / Time No Known Allergies Allergy Unknown Verified 02/18/24 06:04 PMFSH Past Medical History Medical History Hernia Diabetes HTN (hypertension) Diverticulitis x3 episodes before 2024 IBS (irritable bowel syndrome) Surgical History Surgical History (Updated 02/18/24 @ 12:16 by Cheryl Florez MD) H/O colonoscopy last in February 2023 H/O abdominoplasty History of hernia repair inguinal, left, with mesh History of hysterectomy History of section History of cholecystectomy Social History Social History Smoking status: Never smoker Alcohol intake: current Alcohol use details: Occasional Exam 2 Narrative: GENERAL: Well-appearing, well-nourished, and in no acute distress. HEAD: Normocephalic, atraumatic. EYES: Non injected, non icteric ENT: Nares clear, no rhinorrhea or epistaxis. NECK: Supple. CHEST: Speaking in full sentences. No respiratory distress. HEART: Regular rate and rhythm. . ABDOMEN: Soft, nondistended. Mild tenderness to palpation particularly in the left lower quadrant. No rigidity or guarding. Not peritoneal. EXTREMITIES: Normal range of motion. No lower extremity edema. SKIN: Warm, dry, no rash. No overlying ecchymosis or lesions NEURO: No focal deficits. Alert and oriented x3. PSYCH: Normal mood and affect. Course Vital Signs Vital signs: Vital Signs Temperature 97.5 F L 02/18/24 06:01 Pulse Rate 90 02/18/24 06:01 Respiratory Rate 20 02/18/24 06:01 Blood Pressure 171/72 H 02/18/24 06:01 Pulse Oximetry 99 02/18/24 06:01 Oxygen Delivery Room Air 02/18/24 06:01 Temperature 98.2 F 02/18/24 08:48 Pulse Rate 83 02/18/24 12:32 Respiratory Rate 16 02/18/24 12:32 Blood Pressure 166/86 H 02/18/24 12:32 Pulse Oximetry 100 02/18/24 12:32 Oxygen Delivery Room Air 02/18/24 06:01 MDM - Abdominal Pain MDM Narrative Medical decision making narrative: Patient presents with what started as left-sided abdominal pain and now has become generalized abdominal pain. History of 3 prior diverticulitis flares. Up-to-date on colonoscopies. In the emergency department vital signs are notable for hypertension. Hyperglycemia without anion gap acidosis. Normal renal function. Unremarkable CBC CT imaging negative for acute process although it does show diverticulosis without diverticulitis throughout. Patient was reassessed and noted that she was having some lingering abdominal pain although it had been improved from initial. Her nausea has resolved. Will give Bentyl and PO challenge. In sum This patient presents with abdominal pain or unclear etiology. A CT scan was performed to evaluate for potential causes of the abdominal pain, however, neither the clinical exam nor the CT has identified an emergent etiology for the abdominal pain. Specifically, given the benign exam, the laboratory studies, and unremarkable CT, I have a very low suspicion for appendicitis, ischemic bowel, bowel perforation, intra-abdominal abscess, or any other life threatening disease. I have discussed with the patient the level of uncertainty with undifferentiated abdominal pain and explained the need to follow-up as noted on the discharge instructions, or return to the Emergency Department immediately if the pain worsens, develops fever, persistent and uncontrolled vomiting, or for any new symptoms or concerns. Discharged with prescriptions for Bentyl and ondansetron. Also provided prescriptions for [id number] analgesics medications. Differential Diagnosis Differential diagnosis: Likely abdominal pain, acute appendicitis, calculus of kidney, constipation, diverticulitis, endometriosis, gastroenteritis, pancreatitis and small bowel obstruction Lab Data Attestation: I reviewed the patient's lab results. 02/18/24 11:01 02/18/24 11:01 Labs: Lab Results 02/18/24 02/18/24 Range/Units 11:01 12:37 WBC 8.1 (4.5-10.0) K/mm3 RBC 4.59 (4.2-5.4) M/mm3 Hgb 12.4 (12.0-15.0) g/dL Hct 38.1 (37.0-47.0) % MCV 83.0 (80-100) fl MCH 27.0 (26-34) pg MCHC 32.5 (32-36) g/dl RDW 13.9 (11.5-14.5) % Plt Count 254 (150-375) k/mm3 MPV 10.5 H (7.4-10.4) fl Immature Gran % (Auto) 0.2 (0-0.5) % Neut % (Auto) 68.1 (45.5-73.1) % Lymph % (Auto) 22.1 (18.3-44.2) % Hart % (Auto) 5.2 (2.6-8.5) % Eos % (Auto) 3.7 (0-4.4) % Baso % (Auto) 0.7 (0.2-1.2) % Lymph # (Auto) 1.80 (0.9-3.2) K/mm3 Hart # (Auto) 0.4 (0.1-0.6) K/mm3 Eos # (Auto) 0.3 (0-0.3) K/mm3 Baso # (Auto) 0.1 (0.0-0.1) K/mm3 Abs Immat Gran (auto) 0.02 (0.00-0.031) K/mm3 Absolute Neuts (auto) 5.5 (1.3-6.7) K/mm3 Absolute Nucleated RBC 0.000 (0.0-0.012) K/mm3 Nucleated RBC % 0.0 (0.0-0.2) % PT 13.4 (11.1-14.7) Seconds INR 1.0 APTT 27.1 (22.3-36.8) Seconds Sodium 138 (137-145) mmol/L Potassium 4.5 (3.4-5.0) mmol/L Chloride 102 (98-107) mmol/L Carbon Dioxide 28 (22-30) mmol/L Anion Gap 8 (4-12) mmol/L BUN 17 (7-17) mg/dL Creatinine 0.65 L (0.7-1.0) mg/dL Estim Creat Clear Calc 104 ml/min Estimated GFR > 60 (59 - ) Glucose 170 H (65-110) mg/dL Lactic Acid 1.6 (0.7-2.0) mmol/L Calcium 8.9 (8.4-10.2) mg/dL Magnesium 1.8 (1.6-2.3) mg/dL Total Bilirubin 0.6 (0.2-1.3) mg/dL AST 25 (14-36) U/L ALT 25 (6-35) U/L Alkaline Phosphatase 123 (38-126) U/L Total Protein 7.0 (6.3-8.2) g/dL Albumin 4.2 (3.5-5.1) g/dL Lipase 193 (23-300) U/L Urine Color Yellow (Yellow) Urine Appearance Clear (Clear) Urine pH 6.5 (5.0-9.0) Ur Specific [place] 1.013 (1.001-1.035) Urine Protein Negative (Negative) mg/dL Urine Glucose (UA) Negative (Negative) mg/dL Urine Ketones Negative (Negative) mg/dL Ur Blood (Man) Negative (Negative) Urine Nitrate Negative (Negative) Urine Bilirubin Negative (Negative) Urine Urobilinogen 0.2 (<2.0) mg/dL Leukocyte Esterase Rfl Negative (Negative) MICHAEL/UL Influenza A (RT-PCR) Negative (Negative) Influenza B (RT-PCR) Negative (Negative) RSV (RT-PCR) Negative (Negative) SARS-CoV-2 RNA (RT-PCR) Negative (Negative) Imaging Data Radiologist's impression: ITS Impressions Abdomen/Pelvis CT 02/18/24 13:13 IMPRESSION: Diverticulosis of left and right colon; no evidence of diverticulitis No evidence of appendicitis Status post cholecystectomy Status post hysterectomy Discharge Plan Discharge Clinical Impression: Hyperglycemia due to diabetes mellitus, Diverticulosis of colon, Nausea, Loose stools Abdominal pain Qualifiers: Abdominal location: unspecified location Qualified Code(s): R10.9 - Unspecified abdominal pain Patient Disposition: Home, Self-Care Condition: Stable Instructions: Antibiotic Form, Diverticulosis (DC), Managing Diabetes During Sick Days (ED), Acute Nausea and Vomiting (DC), Abdominal Pain (ED), Diabetic Hyperglycemia (ED) Additional Instructions: As we discussed, the etiology of your pain and symptoms is unclear given your labs were generally normal (including viral swab and urine as well as blood work) and your CT scan showed diverticulosis but without diverticulitis or other obvious causes. You can use the prescribed medications, the Bentyl/dicylcomine for abdominal cramping and the oral disintegrating tablets of ondansetron/Zofran for nausea/vomiting. Acetaminophen/Tylenol (maximum 4000 mg per day) is safe to take with NSAIDs (ibuprofen/Motrin) for pain relief. Follow-up with your primary care physician and, as needed, your body and fender mechanic apprentice in [place]. Return to the Emergency Department immediately if the pain worsens, develops fever, persistent and uncontrolled vomiting, or for any new symptoms or concerns Patient Language: Guamanian Prescriptions: New ondansetron 4 mg tablet,disintegrating 4 mg PO Q8H PRN (Reason: nausea and vomiting) Qty: 7 0RF dicyclomine 10 mg capsule 20 mg PO .once daily PRN (Reason: abdominal pain) Qty: 20 0RF ibuprofen 600 mg tablet 600 mg PO TID PRN (Reason: pain) Qty: 20 0RF acetaminophen 500 mg capsule 1,000 mg PO Q6H PRN (Reason: pain) Qty: 30 0RF No Action estradiol 10 mcg tablet 10 mcg VAGINAL DIRECTED amlodipine 10 mg tablet 10 mg DIRECTED glyburide 5 mg tablet 5 mg PO DAILY terbinafine HCl 250 mg tablet 250 mg PO DAILY (DME) Dexcom G6 Sensor Device MISCELLANEOUS amitriptyline 10 mg tablet metformin 500 mg tablet extended release 24 hr PO pantoprazole 40 mg tablet,delayed release (DR/EC) PO (DME) Dexcom G6 Transmitter Device MISCELLANEOUS Mounjaro 2.5 mg/0.5 mL pen injector SUBCUT prednisone 10 mg tablet 10 mg PO DIRECTED Qty: 45 0RF Rx Instructions: 50 mg by mouth daily for 3 days, 40 mg by mouth daily for 3 days , 30 mg by mouth daily for 3 days, 20 mg by mouth daily for 3 days, 10 mg by mouth daily for 3 days, then stop. Follow-up/Referrals: Hailey,MD Alberto [Primary Care Provider] - Stand Alone Forms: Work/School Release IP Time of Disposition: 14:17
[2024-02-18 11:08] LABS: Basophils Absolute Auto 0.1 K/mm3 (0.0-0.1); Basophils Percent Auto 0.7 % (0.2-1.2); Eosinophils Absolute Auto 0.3 K/mm3 (0-0.3); Eosinophils Percent Auto 3.7 % (0-4.4); Hematocrit 38.1 % (37.0-47.0); Hemoglobin 12.4 g/dL (12.0-15.0); Immature Granulocyte Absolute 0.02 K/mm3 (0.00-0.031); Immature Granulocyte Percent A 0.2 % (0-0.5); Lymphocytes Percent Auto 22.1 % (18.3-44.2); Mean Corpuscular HGB Conc 32.5 g/dl (32-36); Mean Platelet Volume 10.5 fl (7.4-10.4); Monocytes Absolute Auto 0.4 K/mm3 (0.1-0.6); Monocytes Percent Auto 5.2 % (2.6-8.5); Neutrophils Absolute Auto 5.5 K/mm3 (1.3-6.7); Neutrophils Percent Auto 68.1 % (45.5-73.1); Platelet Count Result 254 k/mm3 (150-375); Red Blood Count 4.59 M/mm3 (4.2-5.4); Red Cell Distribution Width 13.9 % (11.5-14.5); White Blood Count 8.1 K/mm3 (4.5-10.0)
[2024-02-18 11:19] LABS: Alanine Aminotransferase 25 U/L (6-35); Albumin Level 4.2 g/dL (3.5-5.1); Alkaline Phosphatase 123 U/L (38-126); Anion Gap 8 mmol/L (4-12); Aspartate Amino Transferase 25 U/L (14-36); Bilirubin,Total 0.6 mg/dL (0.2-1.3); Blood Urea Nitrogen 17 mg/dL (7-17); Calcium 8.9 mg/dL (8.4-10.2); Carbon Dioxide 28 mmol/L (22-30); Chloride 102 mmol/L (98-107); Estimated CRCL calculation 104 ml/min; Estimated Glomerular Filt Rate > 60; Glucose 170 mg/dL (65-110); Lactic Acid Reflex 1.6 mmol/L (0.7-2.0); Lipase 193 U/L (23-300); Magnesium 1.8 mg/dL (1.6-2.3); Potassium 4.5 mmol/L (3.4-5.0); Sodium 138 mmol/L (137-145)
[2024-02-18 11:23] LABS: Partial Thromboplastin Time 27.1 Seconds (22.3-36.8); Prothrombin Time 13.4 Seconds (11.1-14.7)
[2024-02-18 11:44] LABS: Influenza A QL RT-PCR Negative (Negative); Influenza B QL RT-PCR Negative (Negative); RSV RNA, RT-PCR Negative (Negative); SARS-CoV-2 RNA PCR Negative (Negative)
[2024-02-18] MEDS: ONDANSETRON INJ 4 MG/2 ML VIAL IV PUSH (12:31)
[2024-02-18] MEDS: MORPHINE SULFATE (*CRX) 4 MG/ML INJ IV PUSH (12:31)
[2024-02-18 12:32] VITALS: BP 166/86; PULSE 83; RESP 16; O2SAT 100
[2024-02-18 12:46] LABS: Add Urine Microscopic? NO; Appearance Urine Clear (Clear); Bilirubin Urine Negative (Negative); Blood Urine Negative (Negative); Color Urine Yellow (Yellow); Glucose Urine UA Negative (Negative); Ketones Urine Negative (Negative); Leukocyte Esterase Ur Negative LEU/UL (Negative); Nitrate Urine Negative (Negative); Protein Urine Negative (Negative); Specific Grav Ur 1.013 (1.001-1.035); Urobilinogen Urine 0.2 mg/dL (<2.0); pH Urine 6.5 (5.0-9.0)
[2024-02-18] MEDS: DICYCLOMINE HCL 10 MG CAPSULE 20 MG PO (13:55)
== END 2024-02-18 14:31 | disposition home or self-care (01) ==
PROVIDERS: Emergency Provider Student in an Organized Health Care Education/Training Program; PCP Family Medicine
DX: K57.90 Diverticulosis of intestine, part unspecified, without perforation or abscess without bleeding (principal); E11.65 Type 2 diabetes mellitus with hyperglycemia; R19.7 Diarrhea, unspecified; R11.0 Nausea; R10.9 Unspecified abdominal pain; Z20.822 Contact with and (suspected) exposure to COVID-19; I10 Essential (primary) hypertension; K58.9 Irritable bowel syndrome, unspecified; Z90.710 Acquired absence of both cervix and uterus; Z90.49 Acquired absence of other specified parts of digestive tract; Z79.85 Long-term (current) use of injectable non-insulin antidiabetic drugs; Z79.84 Long term (current) use of oral hypoglycemic drugs; Z79.899 Other long term (current) drug therapy
CPT/HCPCS: 36415; 74177; 80053; 81003; 83605; 83690; 83735; 85025; 85610; 85730; 87637; 96374; 96375; 99284; A9270; J2270; J2405; Q9967

== ENCOUNTER 2024-03-23 09:19 | Emergency (ER) | payer OTHER, BC, SELFPAY ==
[2024-03-23 09:29] VITALS: BP 147/81; PULSE 102; RESP 18; TEMP 37; O2SAT 96
[2024-03-23 09:30] VITALS: PULSE 102; RESP 18; O2SAT 96
--- NOTE | 2024-03-23 09:36 | ED.URI ---
HPI - URI/Sore Throat General Chief Complaint: Upper Respiratory Infection Stated Complaint: Cough/Sinus Time Seen by Provider: 03/23/24 09:36 Source: patient, RN notes reviewed and old records reviewed Mode of arrival: ambulatory Limitations: no limitations History of Present Illness HPI Narrative: 64-year-old female presents to the [facility] with sinus congestion, cough that started yesterday. Has taken an [id number] cold medicine. Was seen in the ER for diverticulitis on Monday. Patient reports that the cough is making her back and chest sore. Related Data Home Medications ?Medication ?Instructions ?Recorded ?Confirmed ?Last Taken ?Type amlodipine 10 mg tablet 10 mg DIRECTED 11/05/21 01/21/23 Unknown History estradiol 10 mcg vaginal tablet 10 mcg vaginal DIRECTED 11/05/21 01/21/23 Unknown History glyburide 5 mg tablet 5 mg PO DAILY 01/21/23 01/21/23 Unknown History terbinafine HCl 250 mg tablet 250 mg PO DAILY 01/21/23 01/21/23 Unknown History amitriptyline 10 mg tablet mg 10/22/23 Unknown History blood-glucose sensor (Dexcom G6 10/22/23 10/22/23 Unknown History Sensor device) blood-glucose transmitter (Dexcom 10/22/23 10/22/23 Unknown History G6 Transmitter device) pantoprazole 40 mg tablet,delayed mg PO 10/22/23 Unknown History release tirzepatide 2.5 mg/0.5 mL mg subcut 10/22/23 Unknown History subcutaneous pen injector (Mounjaro) atorvastatin 10 mg tablet mg 03/23/24 Unknown History empagliflozin 10 mg tablet mg 03/23/24 Unknown History (Jardiance) Allergies Allergy/AdvReac Type Severity Reaction Status Date / Time No Known Allergies Allergy Unknown Verified 03/23/24 09:31 Review of Systems Review of Systems: All systems reviewed & are unremarkable except as noted in HPI and below Constitutional: Constitutional: Reports body ache(s), Reports fatigue and Reports headache(s) ENT: Reports system reviewed and no additional complaints, except as documented Cardiovascular: Cardiovascular: Reports no additional cardiovascular complaints, Denies chest pain and Denies dyspnea Respiratory: Respiratory: Reports as per HPI, Reports chest congestion, Reports cough and Denies dyspnea Musculoskeletal: Musculoskeletal: Reports no additional musculoskeletal complaints Integumentary/Breasts: Skin/Breast: Reports system reviewed and no additional complaints, except as docu COUNT INCLUDES THE [facility] Past Medical History Medical History Hernia Diabetes HTN (hypertension) Diverticulitis x3 episodes before 2024 IBS (irritable bowel syndrome) Surgical History Surgical History H/O colonoscopy last in February 2023 H/O abdominoplasty History of hernia repair inguinal, left, with mesh History of hysterectomy History of section History of cholecystectomy Social History Social History Smoking status: Never smoker Alcohol intake: current Alcohol use details: Occasional Comments At the time of my signature, I reviewed and agree with the nursing past medical, surgical, social, and family history. There is no relevant family history pertinent to the patient complaint. Exam Const: General: cooperative, no acute distress, well developed, alert, tired appearing, uncomfortable and well nourished Nutritional Appearance: well nourished and obese Orientation/consciousness: patient oriented x3 Limitations: no limitations HENMT: Head: normal to inspection Ears: hearing grossly normal bilaterally, external ears normal, TM's normal bilaterally, EAC's normal, mastoids normal and no periauricular adenopathy Mouth: Yes Normal oral and palatal mucosa present, Yes lip normal, Yes tongue normal and Yes moist mucous membranes Throat: uvula midline, postnasal drainage and no uvular edema Eyes: General: appearance normal, both eyes and all related structures Alignment and Position: alignment normal Neck: Neck: normal visual inspection, full ROM, no lymphadenopathy and no meningeal signs Chest: Chest palpation & inspection: normal inspection of the chest Resp: Effort & Inspection: normal respiratory effort, able to speak in complete sentences and Actively coughing dry Auscultation: clear to auscultation bilaterally, no crackles, no rales, no rhonchi and no wheezes Cardio: Rate: regular rate Skin: General skin exam: normal color and no rashes or lesions noted Neuro: General: patient oriented x3, gait normal, moves all extremities and no meningeal signs Cognition (Neuro): normal cognition Speech: normal speech Gait exam (Neuro): Normal gait present Extrem: General: normal to inspection, full ROM, capillary refill normal and normal gait Psych: Appearance: grossly normal and well kempt Mental Status: mental status grossly normal Speech and movement: Normal speech and movement present and Clear speech present Affect: normal affect Attitude: cooperative Course Course Level of Care: Express Care Visit Vital Signs Vital signs: Vital Signs Temperature 98.6 F 03/23/24 09:29 Pulse Rate 102 H 03/23/24 09:29 Respiratory Rate 18 03/23/24 09:29 Blood Pressure 147/81 H 03/23/24 09:29 Pulse Oximetry 96 03/23/24 09:29 Oxygen Delivery Room Air 03/23/24 09:29 Temperature 98.6 F 03/23/24 09:29 Pulse Rate 102 H 03/23/24 09:30 Respiratory Rate 18 03/23/24 09:30 Blood Pressure 147/81 H 03/23/24 09:29 Pulse Oximetry 96 03/23/24 09:30 Oxygen Delivery Room Air 03/23/24 09:29 Reviewed MDM - URI/Sore Throat MDM Narrative Medical decision making narrative: Patient sitting in exam room. Nontoxic, vitals stable. Patient in no acute distress. Patient presents with 1 day history flu-like symptoms. Patient is flu A positive. Requesting Tamiflu as, states that it helped her family member get better faster. Discussed that she will still be contagious and should take respiratory precautions as well. Discussed [id number] treatments Patient appropriate for outpatient treatment and follow-up Discharge instructions reviewed with patient, as well as provided in writing per nursing staff. The instructions also include specific and strict return/GO TO THE ER as well as f/u information. All questions have been answered, and the patient deny any further questions with discharge and discharge plan. Some parts of this dictation were generated by voice recognition software and may contain typographical and/or grammatical inaccuracies. Differential Diagnosis Differential diagnosis: Likely upper respiratory infection, otitis media, sinusitis, viral infection, bronchitis and influenza Lab Data Labs: Lab Results 03/23/24 Range/Units 09:48 POC Influenza A Ag Positive (Negative) POC Influenza B Ag Negative (Negative) POC SARS CoV-2 Ag Negative (Negative) Reviewed Critical Care Time Critical Care Time Critical Care Time: No Discharge Plan Discharge Clinical Impression: Influenza A Patient Disposition: Home, Self-Care Condition: Stable Instructions: Antibiotic Form, Oseltamivir (By mouth), Influenza (DC) Additional Instructions: You been diagnosed with influenza a. This is a virus. It is extremely important that you do treat your symptoms Your rapid COVID test were negative Your rapid flu test was positive for influenza A Your symptoms are due to a viral illness, which is not treated with antibiotics. Typically viral infections last 7-10 days, can linger for couple of weeks. It is very important to treat your symptoms. Drink plenty of water, Gatorade, Pedialyte, ice pops or Jell-O. -Alternate Tylenol and Motrin per package directions for fever or pain. You can alternate every 4 hours -Antihistamine medication such as Zyrtec/Claritin/Steph during the day can help improve symptoms. -doing daily nasal irrigations can help relieve pressure your sinuses. Things like a Neti pot -Use Flonase twice a day for 5 days then daily to help reduce the inflammation and dry up your sinuses. -You can also use Mucinex, Coricidin HB, or any cough and cold medication that is safe with high blood pressure. Be sure to drink plenty of water with this medication at least 8 ounces with every dose and it is important to drink 8 to 10 glasses of water per day. Water is a natural decongestant -Eat and drink things that are easy to swallow, like tea or soup, or popsicles. -Oral rinses such as: Salt water gargles and/or may use topical anesthetic (eg. Chloraseptic spray) or lozenges to relieve dryness or throat pain). -Frequent hand washing or hand property maintenance technician is one of the best ways to prevent spread of infection. -Using a vaporizer or humidifier at night will also help thin secretions and help with coughing up phlegm. -Follow up with primary care provider in 7-10 days if condition is not improving - For new or worsening symptoms go directly to the nearest ER Patient Language: Danish Prescriptions: New oseltamivir [Tamiflu] 75 mg capsule 75 mg PO Q12H 5 Days Qty: 10 0RF No Action atorvastatin 10 mg tablet Jardiance 10 mg tablet estradiol 10 mcg tablet 10 mcg VAGINAL DIRECTED amlodipine 10 mg tablet 10 mg DIRECTED glyburide 5 mg tablet 5 mg PO DAILY terbinafine HCl 250 mg tablet 250 mg PO DAILY (DME) Dexcom G6 Sensor Device MISCELLANEOUS amitriptyline 10 mg tablet pantoprazole 40 mg tablet,delayed release (DR/EC) PO (DME) Dexcom G6 Transmitter Device MISCELLANEOUS Mounjaro 2.5 mg/0.5 mL pen injector SUBCUT dicyclomine 10 mg capsule 20 mg PO .once daily PRN (Reason: abdominal pain) Qty: 20 0RF Follow-up/Referrals: Hailey,MD Alberto [Primary Care Provider] - 2 Weeks ([facility] follow) Stand Alone Forms: Work/School Release IP Time of Disposition: 09:55
[2024-03-23 09:50] LABS: EDCOVIDSCREEN Negative (Negative); EDINFLUASCREEN Positive (Negative); EDINFLUBSCREEN Negative (Negative)
== END 2024-03-23 10:25 | disposition home or self-care (01) ==
PROVIDERS: Emergency Provider Nurse Practitioner; PCP Family Medicine
DX: J10.1 Influenza due to other identified influenza virus with other respiratory manifestations (principal); E11.9 Type 2 diabetes mellitus without complications; I10 Essential (primary) hypertension; Z20.822 Contact with and (suspected) exposure to COVID-19
CPT/HCPCS: 87426; 87804; 99213; G0463